=== PATIENT | male | born 1985 | race Caucasian/White ===

== ENCOUNTER 2018-08-16 00:05 | Emergency (ER) | payer OTHER ==
[~2018-08-16] VITALS: Ht 177.8 cm; Wt 75.0 kg
[2018-08-16 03:25] VITALS: BP 139/91
== END 2018-08-16 03:36 | disposition home or self-care (01) ==
LOC: ED 03:30
DX: F10.120 Alcohol abuse with intoxication, uncomplicated (principal)
CPT/HCPCS: 99283